=== PATIENT | female | born 1980 | race Caucasian/White ===

== ENCOUNTER 2017-06-02 14:42 | Emergency (ER) | payer OTHER ==
[2017-06-02 15:21] VITALS: BP 154/73; PULSE 78; TEMP 98.7; BMI 25.6
--- NOTE | 2017-06-02 15:52 | PDOC ---
History of Present Illness - General Chief Complaint: Allergic Reaction Stated Complaint: Allergic Reaction Time Seen by Provider: 06/02/17 15:11 History Source: Patient - History of Present Illness Timing/Duration: reports: just prior to arrival Location: reports: extremities, face, torso Respiratory Risk Factors: reports: no cause identified Past History - Past Medical History Allergies/Adverse Reactions: Allergies Allergy/AdvReac Type Severity Reaction Status Date / Time No Known Allergies Allergy Verified 08/12/14 23:20 Home Medications: Ambulatory Orders NK [No Known Home Medication] 06/02/17 Asthma: No Cancer: No Cardiac Disorders: No Diabetes: No HTN: Yes (chronic HTN on daily labetatol) Seizures: No Thyroid Disease: No - Immunization History Immunization Up to Date: Yes - Psycho/Social/Smoking Cessation Hx Anxiety: Yes Suicidal Ideation: No Smoking Status: No Smoking History: Never smoked Have you smoked in the past 12 months: No Number of Cigarettes Smoked Daily: 0 Hx Alcohol Use: No Drug/Substance Use Hx: No Substance Use Type: None Hx Substance Use Treatment: No Review of Systems - Review of Systems Constitutional: No: Chills, Fever Respiratory: No: Cough, Shortness of Breath, Wheezing Cardiac (ROS): No: Chest Pain Integumentary: Yes: Pruritus. No: Rash *Physical Exam - Vital Signs Last Vital Signs Temp Pulse Resp BP Pulse Ox 98.7 F 78 20 154/73 100 06/02/17 15:19 06/02/17 15:19 06/02/17 15:19 06/02/17 15:19 06/02/17 15:19 - Physical Exam General Appearance: Yes: Appropriately Dressed. No: Apparent Distress HEENT: positive: Normal ENT Inspection, Normal Voice, Pharynx Normal. negative : Scleral Icterus (R), Scleral Icterus (L), Muffled/Hoarse voice Neck: positive: Supple Respiratory/Chest: positive: Lungs Clear, Normal Breath Sounds. negative: Respiratory Distress Cardiovascular: positive: Regular Rate, S1, S2 Integumentary: positive: Dry, Warm. negative: Hives, Rash Neurologic: positive: Fully Oriented, Alert, Normal Mood/Affect Medical Decision Making - Medical Decision Making 06/02/17 15:53 37-year-old female, denies any past medical history no food or drug allergies, presents with sudden onset of pruritus that started an hour ago. Patient denies eating anything unusual, and no new topical agents. Denies shortness of breath or tongue swelling. States itching has since significantly improved, but states she was sent to ER by her job. Patient well-appearing and stable with no obvious rash on exam. Will dc with instructions to take over-the- counter antihistamine as needed. Reasons to return discussed with patient 06/02/17 15:56 *DC/Admit/Observation/Transfer Diagnosis at time of Disposition: Generalized pruritus - Discharge Dispostion Disposition: HOME Condition at time of disposition: Improved - Patient Instructions Printed Discharge Instructions: DI for General Allergic Reactions Additional Instructions: Your allergic reaction seem to have improved. Take benadryl. zyrtec or claritin as needed for itching Return for worsening of symptoms Folow up with your PMD as needed
== END 2017-06-02 16:02 | disposition home or self-care (01) ==
LOC: JER 14:42
DX: L29.9 Pruritus, unspecified (principal); I10 Essential (primary) hypertension
CPT/HCPCS: 99281-25

== ENCOUNTER 2023-09-20 16:05 | Inpatient (IN) | payer OTHER ==
[2023-09-20 16:38] VITALS: BMI 22.6
[2023-09-20 18:17] LABS: BASO % 0.3 % (0-2.0); EOS % 0.4 % (0-4.5); HEMATOCRIT 38.3 % (32.4-45.2); HEMOGLOBIN 12.1 GM/dL (10.7-15.3); LYMPH % 11.6 % (8-40); MCH 24.4 pg (25.7-33.7); MCHC 31.6 g/dl (32.0-36.0); MEAN CELL VOLUME 77.3 fl (80-96); MONO % 1.9 % (3.8-10.2); NEUT % 85.8 % (42.8-82.8); PLATELET COUNT 310 10^3/uL (134-434); RBC 4.95 M/mm3 (3.60-5.2); RDW 15.4 % (11.6-15.6); WHITE BLOOD COUNT 7.5 K/mm3 (4.0-10.0)
[2023-09-20 18:25] LABS: INR 1.04 (0.83-1.09); PROTHROMBIN TIME (PATIENT) 12.1 SEC (9.7-13.0)
[2023-09-20 18:27] LABS: ACTIVATED PTT 27.6 SECONDS (25.2-36.5)
[2023-09-20 18:39] LABS: POTASSIUM 4.4 mmol/L (3.5-5.1)
[2023-09-20 18:41] LABS: ALBUMIN 3.4 g/dl (3.4-5.0); CALCIUM 9.2 mg/dL (8.5-10.1)
[2023-09-20 18:42] LABS: BLOOD UREA NITROGEN 8.2 mg/dL (7-18)
[2023-09-20 18:44] LABS: CREATININE 0.6 mg/dL (0.55-1.3)
[2023-09-20 18:46] LABS: BILIRUBIN,TOTAL 0.2 mg/dL (0.2-1); TOT PROT 7.6 g/dl (6.4-8.2)
[2023-09-20] MEDS ORDERED: ASPIRIN 81 MG CHEWABLE TABLETS PO ONE (19:27)
[2023-09-20] MEDS ORDERED: ASPIRIN 81 MG CHEWABLE TABLETS ONE (19:33)
[2023-09-20] MEDS ORDERED: DOCUSATE SODIUM 100 MG CAPSULE (FP) PO ONE (19:33)
[2023-09-20 21:40] LABS: POTASSIUM 4.5 mmol/L (3.5-5.1)
[2023-09-20 21:42] LABS: BLOOD UREA NITROGEN 8.5 mg/dL (7-18); MAGNESIUM 2.2 mg/dL (1.8-2.4)
[2023-09-20 21:45] LABS: CREATININE 0.7 mg/dL (0.55-1.3)
[2023-09-20 21:46] LABS: PHOSPHOROUS 2.1 mg/dL (2.5-4.9)
[2023-09-20] MEDS ORDERED: NAPH,MB-DB/K PH,MBDB POWDER PACKET PO ONE (22:10)
[2023-09-20] MEDS ORDERED: NAPH,MB-DB/K PH,MBDB POWDER PACKET ONE (22:14)
[2023-09-20 23:13] LABS: EPI CELLS 2 /uL (0-25.1); HYALINE CASTS 0 /uL (0-3.1); URINE APPEARANCE CLEAR; URINE BACTERIA 31 /uL (0-1359); URINE BILIRUBIN NEGATIVE (NEGATIVE); URINE COLOR YELLOW; URINE GLUCOSE (UA) NEGATIVE (NEGATIVE); URINE KETONE NEGATIVE (NEGATIVE); URINE LEUK ESTERASE NEGATIVE (NEGATIVE); URINE NITRITE NEGATIVE (NEGATIVE); URINE PROTEIN NEGATIVE (NEGATIVE); URINE RBC 13 /uL (0-23.9); URINE UROBILINOGEN 0.2 mg/dL (0.2-1.0); URINE WBC 2 /uL (0-25.8)
[2023-09-21] MEDS ORDERED: ASPIRIN 81 MG CHEWABLE TABLETS PO ONE (01:44)
[2023-09-21] MEDS ORDERED: ALBUTEROL SO4 HFA INHALER IH PRN (01:45)
[2023-09-21] MEDS ORDERED: ASPIRIN 81 MG CHEWABLE TABLETS ONE (02:17)
[2023-09-21] MEDS ORDERED: methylPREDNISolone NA SUCC 40 MG/1 ML VIAL ONE (02:18)
[2023-09-21] MEDS: methylPREDNISolone NA SUCC 40 MG/1 ML VIAL IVPUSH SCH ×2 (02:25→09:52)
[2023-09-21] MEDS ORDERED: REMDESIVIR 200 MG in SODIUM CHLORIDE 250 ML IVPB ONE ×2 (02:30→02:36)
[2023-09-21] MEDS ORDERED: ALBUTEROL SO4 HFA INHALER IH SCH (02:45)
[2023-09-21 07:42] LABS: HEMATOCRIT 38.2 % (32.4-45.2); HEMOGLOBIN 11.7 GM/dL (10.7-15.3); MCH 24.3 pg (25.7-33.7); MCHC 30.7 g/dl (32.0-36.0); MEAN CELL VOLUME 78.9 fl (80-96); MEAN PLT VOLUME 9.4 fl (7.5-11.1); PLATELET COUNT 378 10^3/uL (134-434); RBC 4.83 M/mm3 (3.60-5.2); RDW 15.3 % (11.6-15.6)
[2023-09-21 08:09] LABS: POTASSIUM 3.9 mmol/L (3.5-5.1)
[2023-09-21 08:20] LABS: BLOOD UREA NITROGEN 11.4 mg/dL (7-18); CALCIUM 8.4 mg/dL (8.5-10.1)
[2023-09-21 08:23] LABS: CREATININE 0.7 mg/dL (0.55-1.3); PHOSPHOROUS 4.1 mg/dL (2.5-4.9)
[2023-09-21] MEDS: ALBUTEROL SO4 HFA INHALER IH SCH ×4 (08:57→21:51)
[2023-09-21] MEDS: ENOXAPARIN NA (PORCINE) 40 MG/0.4 ML DISP.SYRIN SQ SCH (09:55)
[2023-09-21] MEDS: LOSARTAN POTASSIUM 50 MG TABLET PO SCH (09:56)
[2023-09-21] MEDS ORDERED: AZITHROMYCIN IVPB 500 MG/250 ML BAG IVPB SCH (10:00)
[2023-09-21] MEDS ORDERED: methylPREDNISolone NA SUCC 40 MG/1 ML VIAL IVPUSH SCH (10:00)
[2023-09-21] MEDS ORDERED: ACETAMINOPHEN 1000 MG/100 ML BAG IVPB ONE (12:47)
[2023-09-22] MEDS: ALBUTEROL SO4 HFA INHALER IH SCH ×6 (03:52→20:59)
[2023-09-22] MEDS ORDERED: REMDESIVIR 100 MG in SODIUM CHLORIDE 250 ML IVPB SCH (10:00)
[2023-09-22] MEDS ORDERED: REMDESIVIR 100 MG in SODIUM CHLORIDE 270 ML IVPB SCH (10:00)
[2023-09-22] MEDS: LOSARTAN POTASSIUM 50 MG TABLET PO SCH (10:37)
[2023-09-22] MEDS: ENOXAPARIN NA (PORCINE) 40 MG/0.4 ML DISP.SYRIN SQ SCH (10:37)
[2023-09-22] MEDS: ASPIRIN 81 MG CHEWABLE TABLETS PO SCH (10:37)
[2023-09-22] MEDS: REMDESIVIR 100 MG in SODIUM CHLORIDE 250 ML IVPB SCH (10:39)
[2023-09-23] MEDS: ALBUTEROL SO4 HFA INHALER IH SCH ×4 (00:39→11:54)
[2023-09-23 09:06] LABS: BASO % 0.1 % (0-2.0); EOS % 0.1 % (0-4.5); HEMOGLOBIN 11.3 GM/dL (10.7-15.3); LYMPH % 31.8 % (8-40); MCH 24.5 pg (25.7-33.7); MCHC 32.2 g/dl (32.0-36.0); MEAN CELL VOLUME 76.2 fl (80-96); MEAN PLT VOLUME 8.8 fl (7.5-11.1); MONO % 6.1 % (3.8-10.2); NEUT % 61.9 % (42.8-82.8); PLATELET COUNT 302 10^3/uL (134-434); RBC 4.59 M/mm3 (3.60-5.2); RDW 15.7 % (11.6-15.6)
[2023-09-23] MEDS: LOSARTAN POTASSIUM 50 MG TABLET PO SCH (09:18)
[2023-09-23] MEDS: ASPIRIN 81 MG CHEWABLE TABLETS PO SCH (09:18)
[2023-09-23] MEDS: ENOXAPARIN NA (PORCINE) 40 MG/0.4 ML DISP.SYRIN SQ SCH (09:19)
[2023-09-23] MEDS: REMDESIVIR 100 MG in SODIUM CHLORIDE 250 ML IVPB SCH (09:19)
[2023-09-23 09:27] LABS: POTASSIUM 4.1 mmol/L (3.5-5.1)
[2023-09-23 09:31] LABS: CALCIUM 8.4 mg/dL (8.5-10.1)
[2023-09-23 09:32] LABS: BLOOD UREA NITROGEN 15.8 mg/dL (7-18); MAGNESIUM 2.2 mg/dL (1.8-2.4)
[2023-09-23 09:35] LABS: CREATININE 0.7 mg/dL (0.55-1.3); PHOSPHOROUS 3.2 mg/dL (2.5-4.9)
[2023-09-23 09:36] LABS: BILIRUBIN,TOTAL 0.5 mg/dL (0.2-1); TOT PROT 6.5 g/dl (6.4-8.2)
[2023-09-23 13:54] VITALS: BP 132/84; PULSE 81; RESP 18; TEMP 97.5
== END 2023-09-23 15:01 | disposition home or self-care (01) | DRG 137 ==
LOC: JER 16:05 → JERBED 20:36 → J4S 09-21 04:25
PROVIDERS: ADMIT Internal Medicine; ATTEND Internal Medicine
PROC: XW033E5 Introduction of Remdesivir Anti-infective into Peripheral Vein, Percutaneous Approach, New Technology Group 5 (ICD-10-PCS; principal; 2023-09-21)
DX: U07.1 COVID-19 (principal); I10 Essential (primary) hypertension; N28.1 Cyst of kidney, acquired; R00.2 Palpitations; E83.39 Other disorders of phosphorus metabolism; I24.89 Other forms of acute ischemic heart disease
CPT/HCPCS: 0241U-QW; 36415; 71045-TC-FY; 71275-TC; 80048; 80053; 80061; 81003; 82962; 83036; 83735; 84100; 84439; 84443; 84484; 84703; 85025; 85027; 85610; 85730; 87040; 87086; 87186; 93005; 93010; 93306-TC; 94010; 99285-25; J0248; Q9967

== ENCOUNTER 2023-11-12 21:39 | Emergency (ER) | payer OTHER ==
[2023-11-12 21:48] VITALS: RESP 18; BMI 25.6
[2023-11-12 22:38] LABS: HEMATOCRIT 36.2 % (32.4-45.2); HEMOGLOBIN 11.6 GM/dL (10.7-15.3); MCH 24.6 pg (25.7-33.7); MCHC 32.2 g/dl (32.0-36.0); MEAN CELL VOLUME 76.3 fl (80-96); MEAN PLT VOLUME 9.1 fl (7.5-11.1); PLATELET COUNT 206 10^3/uL (134-434); RBC 4.74 M/mm3 (3.60-5.2); RDW 15.7 % (11.6-15.6); WHITE BLOOD COUNT 8.7 K/mm3 (4.0-10.0)
[2023-11-12 22:54] LABS: PH,URINE 6.5 (5.0-8.0); URINE APPEARANCE CLEAR; URINE BILIRUBIN NEGATIVE (NEGATIVE); URINE COLOR YELLOW; URINE GLUCOSE (UA) NEGATIVE (NEGATIVE); URINE KETONE NEGATIVE (NEGATIVE); URINE LEUK ESTERASE NEGATIVE (NEGATIVE); URINE NITRITE NEGATIVE (NEGATIVE); URINE PROTEIN NEGATIVE (NEGATIVE); URINE UROBILINOGEN 0.2 mg/dL (0.2-1.0)
[2023-11-12 22:57] LABS: CHLORIDE 109 mmol/L (98-107); SODIUM 138 mmol/L (136-145)
[2023-11-12 22:59] LABS: ALBUMIN 3.5 g/dl (3.4-5.0); CALCIUM 8.3 mg/dL (8.5-10.1)
[2023-11-12 23:00] LABS: ANION GAP 7 mmol/L (4-13); BLOOD UREA NITROGEN 9.7 mg/dL (7-18); CO2 22 mmol/L (21-32); GLUCOSE,RANDOM 126 mg/dL (74-106)
[2023-11-12 23:02] LABS: CREATININE 0.7 mg/dL (0.55-1.3)
[2023-11-12 23:03] LABS: PHOSPHOROUS 2.1 mg/dL (2.5-4.9); SGOT/AST 29 U/L (15-37); SGPT/ALT 27 U/L (13-61)
[2023-11-12 23:04] LABS: BILIRUBIN,TOTAL 0.5 mg/dL (0.2-1); TOT PROT 7.3 g/dl (6.4-8.2)
[2023-11-12 23:05] LABS: ALK PHOS 53 U/L (45-117)
[2023-11-12] MEDS ORDERED: SODIUM CHLORIDE 0.9% 500 ML INFUS.BAG IV ONE (23:29)
[2023-11-13] MEDS ORDERED: SODIUM CHLORIDE 1,000 ML IV STA (00:04)
[2023-11-13 00:56] VITALS: BP 135/79; TEMP 99
[2023-11-13 03:06] VITALS: PULSE 98
== END 2023-11-13 03:47 | disposition home or self-care (01) ==
LOC: JER 21:39
DX: R07.9 Chest pain, unspecified (principal); R00.2 Palpitations; R42 Dizziness and giddiness; R06.00 Dyspnea, unspecified; R11.2 Nausea with vomiting, unspecified; R19.7 Diarrhea, unspecified; R10.9 Unspecified abdominal pain; Z20.822 Contact with and (suspected) exposure to COVID-19
CPT/HCPCS: 0241U-QW; 36415; 71045-TC-FY; 71275-TC; 80053; 81003; 83735; 84100; 84439; 84443; 84484; 84702; 85027; 85379; 93005; 93010; 99285-25; Q9967

== ENCOUNTER 2023-11-15 07:35 | Emergency (ER) | payer OTHER ==
[2023-11-15 07:42] VITALS: RESP 20; BMI 27.4
[2023-11-15] MEDS ORDERED: LOSARTAN POTASSIUM 50 MG TABLET PO ONE (08:09)
[2023-11-15] MEDS ORDERED: ACETAMINOPHEN 1000 MG/100 ML BAG IVPB ONE (08:11)
[2023-11-15] MEDS ORDERED: SODIUM CHLORIDE 0.9% 500 ML INFUS.BAG IV ONE (08:27)
[2023-11-15] MEDS ORDERED: METOCLOPRAMIDE HCL INJECTION 10 MG/2 ML VIAL IVPB ONE (08:27)
[2023-11-15 08:34] LABS: BASO % 0.4 % (0-2.0); EOS % 1.7 % (0-4.5); HEMATOCRIT 36.8 % (32.4-45.2); HEMOGLOBIN 11.5 GM/dL (10.7-15.3); LYMPH % 23.6 % (8-40); MCH 24.2 pg (25.7-33.7); MCHC 31.4 g/dl (32.0-36.0); MEAN CELL VOLUME 77.3 fl (80-96); MEAN PLT VOLUME 9.2 fl (7.5-11.1); MONO % 8.8 % (3.8-10.2); NEUT % 65.5 % (42.8-82.8); PLATELET COUNT 243 10^3/uL (134-434); RBC 4.76 M/mm3 (3.60-5.2); RDW 15.7 % (11.6-15.6); WHITE BLOOD COUNT 5.2 K/mm3 (4.0-10.0)
[2023-11-15 08:52] LABS: POTASSIUM 4.4 mmol/L (3.5-5.1)
[2023-11-15 08:54] LABS: ALBUMIN 3.6 g/dl (3.4-5.0); BLOOD UREA NITROGEN 9.7 mg/dL (7-18)
[2023-11-15 08:57] LABS: CREATININE 0.6 mg/dL (0.55-1.3)
[2023-11-15 08:59] LABS: BILIRUBIN,TOTAL 0.2 mg/dL (0.2-1); TOT PROT 7.6 g/dl (6.4-8.2)
[2023-11-15] MEDS ORDERED: ACETAMINOPHEN INJECTION 100 ML IVPB ONE (08:59)
[2023-11-15] MEDS ORDERED: METOCLOPRAMIDE HCL INJECTION 10 MG/2 ML VIAL ONE (08:59)
[2023-11-15] MEDS ORDERED: LOSARTAN POTASSIUM 50 MG TABLET ONE (08:59)
[2023-11-15 10:39] VITALS: BP 121/70; PULSE 79; TEMP 98.2
== END 2023-11-15 10:54 | disposition home or self-care (01) ==
LOC: JER 07:35
PROC: 3E033NZ Introduction of Analgesics, Hypnotics, Sedatives into Peripheral Vein, Percutaneous Approach (ICD-10-PCS; principal; 2023-11-15)
PROC: 3E033GC Introduction of Other Therapeutic Substance into Peripheral Vein, Percutaneous Approach (ICD-10-PCS; 2023-11-15)
PROC: 3E033GC Introduction of Other Therapeutic Substance into Peripheral Vein, Percutaneous Approach (ICD-10-PCS; 2023-11-15)
DX: R07.9 Chest pain, unspecified (principal); R42 Dizziness and giddiness; F41.9 Anxiety disorder, unspecified; Z20.822 Contact with and (suspected) exposure to COVID-19
CPT/HCPCS: 0241U-QW; 36415; 80053; 84443; 84484; 85025; 93005; 93010; 96374; 96375; 99284-25

== ENCOUNTER 2023-12-08 23:29 | Emergency (ER) | payer OTHER ==
[2023-12-08 23:43] VITALS: BMI 29.8
[2023-12-09] MEDS: SODIUM CHLORIDE 0.9% 500 ML INFUS.BAG IV ONE (01:22)
[2023-12-09 01:30] LABS: BASO % 0.4 % (0-2.0); EOS % 2.5 % (0-4.5); HEMATOCRIT 35.8 % (32.4-45.2); HEMOGLOBIN 11.4 GM/dL (10.7-15.3); LYMPH % 19.6 % (8-40); MCH 24.2 pg (25.7-33.7); MCHC 31.8 g/dl (32.0-36.0); MEAN CELL VOLUME 76.1 fl (80-96); MEAN PLT VOLUME 9.8 fl (7.5-11.1); MONO % 8.3 % (3.8-10.2); NEUT % 69.2 % (42.8-82.8); PLATELET COUNT 234 10^3/uL (134-434); RBC 4.71 M/mm3 (3.60-5.2); RDW 16.1 % (11.6-15.6); WHITE BLOOD COUNT 7.7 K/mm3 (4.0-10.0)
[2023-12-09 01:31] LABS: PH,URINE 6.5 (5.0-8.0); URINE APPEARANCE CLEAR; URINE BILIRUBIN NEGATIVE (NEGATIVE); URINE COLOR YELLOW; URINE GLUCOSE (UA) NEGATIVE (NEGATIVE); URINE KETONE NEGATIVE (NEGATIVE); URINE LEUK ESTERASE NEGATIVE (NEGATIVE); URINE NITRITE NEGATIVE (NEGATIVE); URINE PROTEIN NEGATIVE (NEGATIVE); URINE UROBILINOGEN 0.2 mg/dL (0.2-1.0)
[2023-12-09 01:49] LABS: POTASSIUM 4.7 mmol/L (3.5-5.1)
[2023-12-09 01:52] LABS: ALBUMIN 3.9 g/dl (3.4-5.0); BLOOD UREA NITROGEN 8.2 mg/dL (7-18); MAGNESIUM 2.5 mg/dL (1.8-2.4)
[2023-12-09 01:55] LABS: CREATININE 0.6 mg/dL (0.55-1.3)
[2023-12-09 01:57] LABS: BILIRUBIN,TOTAL 0.2 mg/dL (0.2-1); TOT PROT 7.6 g/dl (6.4-8.2)
[2023-12-09 05:01] VITALS: BP 120/74; PULSE 76; RESP 18; TEMP 98.3
== END 2023-12-09 05:11 | disposition home or self-care (01) ==
LOC: JER 23:29
DX: R00.2 Palpitations (principal); R07.9 Chest pain, unspecified; Z20.822 Contact with and (suspected) exposure to COVID-19
CPT/HCPCS: 0241U-QW; 36415; 71046-TC-FY; 80053; 81003; 83735; 84439; 84443; 84484; 84703; 85025; 85379; 87086; 93005; 93010; 99285-25

== ENCOUNTER 2024-02-13 04:28 | Emergency (ER) | payer OTHER ==
[2024-02-13 04:32] VITALS: BP 144/95; PULSE 85; RESP 16; TEMP 98.2; BMI 29.2
[2024-02-13] MEDS ORDERED: METOCLOPRAMIDE HCL INJECTION 10 MG/2 ML VIAL ONE (05:18)
[2024-02-13] MEDS ORDERED: ACETAMINOPHEN INJECTION 100 ML IVPB ONE (05:19)
[2024-02-13] MEDS: ACETAMINOPHEN 1000 MG/100 ML BAG IVPB ONE (05:27)
[2024-02-13] MEDS: METOCLOPRAMIDE HCL INJECTION 10 MG/2 ML VIAL IVPB ONE (05:28)
[2024-02-13 05:30] LABS: PH,URINE 5.5 (5.0-8.0); URINE APPEARANCE CLEAR; URINE BILIRUBIN NEGATIVE (NEGATIVE); URINE COLOR YELLOW; URINE GLUCOSE (UA) NEGATIVE (NEGATIVE); URINE KETONE NEGATIVE (NEGATIVE); URINE LEUK ESTERASE NEGATIVE (NEGATIVE); URINE NITRITE NEGATIVE (NEGATIVE); URINE PROTEIN NEGATIVE (NEGATIVE); URINE UROBILINOGEN 0.2 mg/dL (0.2-1.0)
[2024-02-13 05:38] LABS: BASO % 0.5 % (0-2.0); EOS % 1.1 % (0-4.5); HEMATOCRIT 35.9 % (32.4-45.2); HEMOGLOBIN 11.2 GM/dL (10.7-15.3); LYMPH % 16.6 % (8-40); MCH 23.2 pg (25.7-33.7); MCHC 31.2 g/dl (32.0-36.0); MEAN CELL VOLUME 74.4 fl (80-96); MEAN PLT VOLUME 9.4 fl (7.5-11.1); MONO % 5.3 % (3.8-10.2); NEUT % 76.5 % (42.8-82.8); PLATELET COUNT 254 10^3/uL (134-434); POTASSIUM 4.3 mmol/L (3.5-5.1); RBC 4.82 M/mm3 (3.60-5.2); RDW 16.8 % (11.6-15.6); WHITE BLOOD COUNT 6.1 K/mm3 (4.0-10.0)
[2024-02-13 05:40] LABS: CALCIUM 8.4 mg/dL (8.5-10.1)
[2024-02-13 05:41] LABS: ALBUMIN 3.5 g/dl (3.4-5.0); BLOOD UREA NITROGEN 16.5 mg/dL (7-18)
[2024-02-13 05:45] LABS: CREATININE 0.7 mg/dL (0.55-1.3)
[2024-02-13 05:46] LABS: BILIRUBIN,TOTAL 0.4 mg/dL (0.2-1); TOT PROT 7.2 g/dl (6.4-8.2)
== END 2024-02-13 06:27 | disposition home or self-care (01) ==
LOC: JER 04:28
PROC: 3E033NZ Introduction of Analgesics, Hypnotics, Sedatives into Peripheral Vein, Percutaneous Approach (ICD-10-PCS; principal; 2024-02-13)
PROC: 3E033GC Introduction of Other Therapeutic Substance into Peripheral Vein, Percutaneous Approach (ICD-10-PCS; 2024-02-13)
DX: R42 Dizziness and giddiness (principal); R10.9 Unspecified abdominal pain; R51.9 Headache, unspecified; R11.0 Nausea
CPT/HCPCS: 36415; 70450-TC; 80053; 81003; 82962; 84703; 85025; 87086; 93005; 93010; 99285-25; J0131

== ENCOUNTER 2024-05-30 02:03 | Emergency (ER) | payer OTHER ==
[2024-05-30 02:11] VITALS: BMI 25.6
[2024-05-30] MEDS ORDERED: ACETAMINOPHEN INJECTION 100 ML IVPB ONE (02:47)
[2024-05-30 02:50] LABS: BASO % 0.4 % (0-2.0); HEMATOCRIT 32.7 % (32.4-45.2); HEMOGLOBIN 10.4 GM/dL (10.7-15.3); LYMPH % 23.8 % (8-40); MCH 23.9 pg (25.7-33.7); MCHC 31.9 g/dl (32.0-36.0); MEAN CELL VOLUME 74.8 fl (80-96); MEAN PLT VOLUME 9.3 fl (7.5-11.1); NEUT % 62.8 % (42.8-82.8); PLATELET COUNT 224 10^3/uL (134-434); RBC 4.37 M/mm3 (3.60-5.2); RDW 17.2 % (11.6-15.6); WHITE BLOOD COUNT 7.5 K/mm3 (4.0-10.0)
[2024-05-30] MEDS: SODIUM CHLORIDE 0.9% 500 ML INFUS.BAG IV ONE (02:53)
[2024-05-30] MEDS: ACETAMINOPHEN 1000 MG/100 ML BAG IVPB ONE (02:54)
[2024-05-30 02:57] LABS: INR 0.99 (0.83-1.09); PROTHROMBIN TIME (PATIENT) 11.2 SEC (9.7-13.0)
[2024-05-30 03:00] LABS: ACTIVATED PTT 27.3 SECONDS (25.2-36.5)
[2024-05-30 03:13] LABS: POTASSIUM 3.9 mmol/L (3.5-5.1)
[2024-05-30 03:15] LABS: CALCIUM 8.6 mg/dL (8.5-10.1)
[2024-05-30 03:16] LABS: ALBUMIN 3.4 g/dl (3.4-5.0); BLOOD UREA NITROGEN 15.4 mg/dL (7-18)
[2024-05-30 03:19] LABS: CREATININE 0.9 mg/dL (0.55-1.3)
[2024-05-30 03:21] LABS: BILIRUBIN,TOTAL 0.2 mg/dL (0.2-1)
[2024-05-30 03:28] LABS: URINE APPEARANCE CLEAR; URINE BILIRUBIN NEGATIVE (NEGATIVE); URINE COLOR YELLOW; URINE GLUCOSE (UA) NEGATIVE (NEGATIVE); URINE KETONE NEGATIVE (NEGATIVE); URINE LEUK ESTERASE NEGATIVE (NEGATIVE); URINE NITRITE NEGATIVE (NEGATIVE); URINE PROTEIN NEGATIVE (NEGATIVE); URINE UROBILINOGEN 0.2 mg/dL (0.2-1.0)
[2024-05-30 04:03] VITALS: BP 124/88; PULSE 83; RESP 16; TEMP 98.2
== END 2024-05-30 04:03 | disposition home or self-care (01) ==
LOC: JER 02:03
PROC: 3E033NZ Introduction of Analgesics, Hypnotics, Sedatives into Peripheral Vein, Percutaneous Approach (ICD-10-PCS; principal; 2024-05-30)
DX: R07.89 Other chest pain (principal); R00.2 Palpitations; R42 Dizziness and giddiness; R10.9 Unspecified abdominal pain; R11.0 Nausea
CPT/HCPCS: 36415; 71046-TC-FY; 80053; 81003; 84484; 85025; 85610; 85730; 86850; 86900; 86901; 87086; 93005; 93010; 99285-25; J0131